=== PATIENT | male | born 1980 | race Hispanic/Latino ===

== ENCOUNTER 2023-10-21 16:05 | Emergency (ER) | payer SELFPAY ==
[2023-10-21] MEDS ORDERED: Ibuprofen 200 MG TAB ONE (16:37)
[2023-10-21] MEDS ORDERED: Acetaminophen 325 MG TAB ONE (16:37)
[2023-10-21 17:37] LABS: SARS-CoV-2 NAA Rapid Test Not Detected (NotDetected)
== END 2023-10-21 18:45 | disposition home or self-care (01) ==
LOC: ERS 16:05
DX: J10.1 Influenza due to other identified influenza virus with other respiratory manifestations (principal)
CPT/HCPCS: 99283